=== PATIENT | male | born 1960 | race Caucasian/White ===

== ENCOUNTER 2017-09-14 10:45 | Day surgery (SDC) | payer BC ==
[2017-09-14] MEDS ORDERED: D5 LR 1000 ML 1,000 ML IV ONE (10:51)
[2017-09-14] MEDS ORDERED: DIPRIVAN VIAL 20 ML ONE ×2 (11:08→11:11)
[2017-09-14 11:28] VITALS: BP 128/71
== END 2017-09-14 11:30 | disposition home or self-care (01) ==
LOC: SURG1 10:45
PROVIDERS: ATTEND Internal Medicine Gastroenterology
PROC: 0DB58ZX Excision of Esophagus, Via Natural or Artificial Opening Endoscopic, Diagnostic (ICD-10-PCS; principal; 2017-09-14 13:15)
PROC: 0DJ08ZZ Inspection of Upper Intestinal Tract, Via Natural or Artificial Opening Endoscopic (ICD-10-PCS; principal; 2017-09-14 13:15)
PROC: 0DB68ZX Excision of Stomach, Via Natural or Artificial Opening Endoscopic, Diagnostic (ICD-10-PCS; principal; 2017-09-14 13:15)
PROC: 0D757ZZ Dilation of Esophagus, Via Natural or Artificial Opening (ICD-10-PCS; principal; 2017-09-14 13:15)
DX: R13.19 Other dysphagia (principal); R10.13 Epigastric pain; K21.9 Gastro-esophageal reflux disease without esophagitis; K20.8 Other esophagitis
CPT/HCPCS: A4217; J3490; J7120